=== PATIENT | male | born 1985 | race Caucasian/White ===

== ENCOUNTER 2019-03-29 10:26 | Emergency (ER) | payer MEDICAID, OTHER ==
[~2019-03-29] VITALS: Wt 100.0 kg
[~2019-03-29 10:26] MED LIST: HYDR-4011 PO
[2019-03-29 10:31] VITALS: BP 136/76; PULSE 76; RESP 18
== END 2019-03-29 13:36 | disposition home or self-care (01) ==
LOC: E/R 10:26
DX: S29.001A Unspecified injury of muscle and tendon of front wall of thorax, initial encounter (principal); W18.39XA Other fall on same level, initial encounter; Y92.321 Football field as the place of occurrence of the external cause
CPT/HCPCS: 71100